=== PATIENT | female | born 1935 | race Hispanic/Latino ===

== ENCOUNTER 2018-06-16 11:12 | Emergency (ER) | payer MEDICARE, OTHER ==
[~2018-06-16] VITALS: Ht 149.9 cm; Wt 49.9 kg
[2018-06-16] MEDS ORDERED: ONDANSETRON HCL INJ 2 MG/ML VIAL IV STA (11:24)
[2018-06-16] MEDS ORDERED: SODIUM CHLORIDE 0.9% 1000ML 1,000 ML ONE (11:30)
[2018-06-16] MEDS ORDERED: ACETAMINOPHEN 325 MG TAB PO ONE (11:30)
[2018-06-16] MEDS ORDERED: CEFTRIAXONE SOD 1 GM VIAL IV ONE (11:30)
--- NOTE | 2018-06-16 12:24 | Diagnostic Imaging Report ---
EXAM: CT Abdomen and Pelvis WITHOUT contrast INDICATION: Painful urination with blood for about 4 days \[id number] \[id number] COMPARISON: None. TECHNIQUE: Abdomen and pelvis were scanned utilizing a multidetector helical scanner from the lung base to the pubic symphysis without administration of IV contrast. Absence of intravenous contrast decreases sensitivity for detection of focal lesions and vascular pathology. Coronal and sagittal reformations were obtained. Routine protocol was performed. IV CONTRAST: None ORAL CONTRAST: Water COMPLICATIONS: None RADIATION DOSE: Total DLP: 371.7 mGy*cm Estimated effective dose: (DLP x 0.015 x size factor) mSv CTDIvol has been reviewed. It is below the limits set by the Radiation Protocol Committee (RPC). FINDINGS: LINES and TUBES: None. LOWER THORAX: There is bibasilar atelectasis. HEPATOBILIARY: No focal hepatic lesions. No biliary ductal dilation. GALLBLADDER: 2.8 x 1.8 cm gallstone. No wall thickening. SPLEEN: No splenomegaly. PANCREAS: No focal masses or ductal dilatation. ADRENALS: No adrenal nodules KIDNEYS/URETERS: No hydronephrosis. No cystic or solid mass lesions. Right inferior pole 2 mm nonobstructing stone. GI TRACT: No abnormal distention, wall thickening, or evidence of bowel obstruction. Appendix is normal. PELVIC ORGANS/BLADDER: Globular appearance of the uterus may be related to underlying fibroid. LYMPH NODES: No lymphadenopathy. VESSELS: There is mild atherosclerotic disease in the aorta and major arterial branches. PERITONEUM / RETROPERITONEUM: No free air or fluid. BONES: No acute or suspicious osseous lesions. SOFT TISSUES: There is a fat containing para-umbilical hernia. IMPRESSION: 1. Right nephrolithiasis. 2. Cholelithiasis. 3. Globular appearance of the uterus may be related to underlying fibroid and can be further evaluated with ultrasound as indicated. 4. No acute non-contrast CT abnormalities in the abdomen and pelvis. Signed by: DR. Gus Arora MD on 06/16/2018 12:20 PM
[2018-06-16 12:35] VITALS: BP 140/79
== END 2018-06-16 13:12 | disposition home or self-care (01) ==
LOC: FSED 11:12
DX: R30.0 Dysuria (principal); R10.2 Pelvic and perineal pain; N30.01 Acute cystitis with hematuria; N10 Acute pyelonephritis
CPT/HCPCS: 74176; 80053; 81003; 85025; 87086; 87186; 99284; J0696; J2405; J7030